=== PATIENT | male | born 1960 | race Caucasian/White ===

== ENCOUNTER 2019-02-12 21:35 | Inpatient (IN) | payer BC, MEDICAID ==
[~2019-02-12] VITALS: Ht 182.9 cm; Wt 80.0 kg
[~2019-02-12 21:35] MED LIST: FLO0.4C PO; IBUP-1984 PO
[2019-02-12 22:15] LABS: BASOPHILS # (AUTO) 0.1 X10'3 (0-0.2); BASOPHILS % (AUTO) 0.5 % (0-1); EOSINOPHILS % (AUTO) 0 % (0-6); HEMATOCRIT 46.3 % (42.0-52.0); LYMPHOCYTES # (AUTO) 0.7 X10'3 (1.1-4.8); LYMPHOCYTES % (AUTO) 4.3 % (21-51); MEAN CORPUSCULAR HEMOGLOBIN 31.5 PG (27.0-31.0); MEAN CORPUSCULAR HGB CONC 34.7 g/dL (33.0-36.5); MEAN CORPUSCULAR VOLUME 90.9 FL (78-98); MEAN PLATELET VOLUME 9.6 FL (7.4-10.4); MONOCYTES # (AUTO) 0.7 X10'3 (0-0.9); MONOCYTES % (AUTO) 4.4 % (2-12); NEUTROPHILS # (AUTO) 14.6 X10'3 (1.8-7.7); NEUTROPHILS % (AUTO) 90.8 % (42-75); PLATELET COUNT 210 X10'3 (140-440); RED BLOOD COUNT 5.09 X10'6 (4.70-6.10); RED CELL DISTRIBUTION WIDTH 13.3 % (11.5-14.5); WHITE BLOOD COUNT 16.1 X10'3 (4.5-11.0)
[2019-02-12] MEDS ORDERED: morphine 4 MG/ML inj SYRINge IV ONE (22:15)
[2019-02-12] MEDS ORDERED: ondansetron/PF 4mg/2ml inj IV ONE (22:15)
[2019-02-12 22:26] LABS: CLARITY,URINE CLEAR (Clear); COLOR,URINE YELLOW (Yellow); GLUCOSE, URINE NEGATIVE (Neg); KETONES,URINE 15 mg/dl (Neg); LEUKOCYTE ESTERASE ,URINE NEGATIVE (Neg); NITRITES, URINE NEGATIVE (Neg); OCCULT BLOOD,URINE NEGATIVE (Neg); PH,URINE 8.5 (4.8-8.0); PROTEIN,URINE NEGATIVE (Neg); UROBILINOGEN,URINE 0.2 E.U/dL (0.2-1.0)
[2019-02-12 22:31] LABS: ALANINE AMINOTRANSFERASE 28 U/L (12-78); ALBUMIN 4.2 G/DL (3.4-5.0); ALBUMIN/GLOBULIN RATIO 1.3 (1.1-1.5); ALKALINE PHOSPHATASE 31 IU/L (46-116); ANION GAP 13 (8-16); ASPARTATE AMINO TRANSFERASE 10 U/L (10-37); BLOOD UREA NITROGEN 13 MG/DL (7-18); BUN/CREATININE RATIO 11.2 (5.4-32.0); CALCIUM 9.4 MG/DL (8.5-10.1); CHLORIDE 103 MMOL/L (99-107); CREATININE 1.16 MG/DL (0.60-1.10); GLUCOSE 107 MG/DL (70-104); LIPASE 72 U/L (73-393); POTASSIUM 3.5 MMOL/L (3.5-5.1); SODIUM 139 MMOL/L (135-145); TOTAL CARBON DIOXIDE 23.1 MMOL/L (24-32); TOTAL PROTEIN 7.5 G/DL (6.4-8.2); eGFR 64 ML/MIN
[2019-02-12 22:32] LABS: UA COLLECTION TYPE CLN CATCH MIDSTREAM
--- NOTE | 2019-02-12 22:44 | NUR ---
[facility] [phone]
[2019-02-12] MEDS: diatr meglu/diatrizoate 30ml oral sol.-(3 dose) bottle PO SCH (23:40)
[2019-02-13] VITALS (25 sets, daily range): BP systolic 109–170; BP diastolic 66–92
[2019-02-13] MEDS: diatr meglu/diatrizoate 30ml oral sol.-(3 dose) bottle PO SCH ×2 (00:28→01:54)
[2019-02-13] MEDS ORDERED: iohexol 300mg/ml 100ml inj. ONE (01:07)
[2019-02-13] MEDS ORDERED: ceFOXitin 1 GM/D5W 50mL IVPB 50 ML IV ONE (03:30)
[2019-02-13] MEDS ORDERED: morphine 4 MG/ML inj SYRINge IV ONE (03:50)
[2019-02-13] MEDS ORDERED: ondansetron/PF 4mg/2ml inj IV ONE (04:10)
--- NOTE | 2019-02-13 04:56 | NUR ---
MD VERDUGO CONSULTED WITH HEATHER WHO WANTS PATIENT ADMITED TO INPATIENT AND WILL FOLLOW-UP FOR SURGICAL CONSULT THIS AM.
[2019-02-13] MEDS ORDERED: normal saline 1000ML IV soln IVB ONE (05:05)
[2019-02-13] MEDS ORDERED: magnesium 4gm in 100ml NS 100 ML IV PRN (05:10)
[2019-02-13] MEDS ORDERED: magnesium 2GM in 50ml NS 50 ML IV PRN (05:10)
[2019-02-13] MEDS ORDERED: potassium Cl 20 mEq SR tablet PO PRN ×2 (05:10)
[2019-02-13] MEDS ORDERED: magnesium Cl slow-release 64mg tablet PO PRN (05:10)
[2019-02-13] MEDS ORDERED: morphine 2 MG/ML inj. syringe IV PRN (05:10)
[2019-02-13] MEDS ORDERED: ondansetron/PF 4mg/2ml inj IV PRN ×3 (05:10→14:45)
[2019-02-13] MEDS ORDERED: potassium CL 10mEq/100ml bag 100 ML IV PRN ×2 (05:10)
[2019-02-13] MEDS: normal saline 1000ml 1,000 ML IV SCH ×2 (06:31→17:03)
[2019-02-13] MEDS ORDERED: levoFLOXACIN-Levaquin 500mg/D5 100 ML IV SCH (08:00)
[2019-02-13] MEDS: K and/or MAG REPLACEMENT MC SCH (08:00)
[2019-02-13] MEDS: famotidine/PF 10 mg/ml inj IV SCH (08:07)
[2019-02-13] MEDS ORDERED: morphine 2 MG/ML inj. syringe IV ONE (09:35)
[2019-02-13] MEDS ORDERED: FINA5TAB11 PO (12:38)
[2019-02-13] MEDS ORDERED: BUPIVAcaine/PF 2.5 mg/ml (0.25%) 30ml vial ONE (13:15)
[2019-02-13] MEDS ORDERED: ringers solution, lacted 1,000 ML IV SCH (13:22)
[2019-02-13] MEDS ORDERED: sevoflurane 250ml liquid IH ONE (13:23)
[2019-02-13] MEDS ORDERED: morphine 4 MG/ML inj SYRINge IV PRN (13:25)
[2019-02-13] MEDS ORDERED: labetalol 20mg/4ml (5mg/ml) syringe IV PRN (13:25)
[2019-02-13] MEDS ORDERED: fentaNYL/PF 50MCG/1 ML 2ML syringe IV PRN ×2 (13:25)
[2019-02-13] MEDS ORDERED: hydrALAZINE 20mg/ml inj. IV PRN (13:25)
[2019-02-13] MEDS ORDERED: fentaNYL/PF 50MCG/1 ML 2ML syringe ONE (13:28)
[2019-02-13] MEDS ORDERED: midazolam 2 mg/2 ml injection ONE (13:28)
[2019-02-13] MEDS ORDERED: neostigmine methylsulfate 1 MG/ML 10ml vial ONE (13:30)
[2019-02-13] MEDS ORDERED: rocuronium 10mg/ml inj IV ONE (13:30)
[2019-02-13] MEDS ORDERED: LIDOcaine 2% (20mg/ml) 5ml vial ONE (13:30)
[2019-02-13] MEDS ORDERED: dexamethasone sod phosphate 4mg/ml inj. ONE (13:30)
[2019-02-13] MEDS ORDERED: ondansetron/PF 4mg/2ml inj ONE (13:30)
[2019-02-13] MEDS ORDERED: glycopyrrolate 0.2mg/ml inj ONE (13:30)
[2019-02-13] MEDS ORDERED: propofol inj 20 ML IV ONE (13:30)
[2019-02-13] MEDS ORDERED: meperidine/PF 50mg/ml syringe ONE (13:43)
[2019-02-13] MEDS ORDERED: hydrALAZINE 20mg/ml inj. IV ONE (14:06)
[2019-02-13] MEDS ORDERED: HYDROmorphone 1 mg/ml syringe IV PRN (14:50)
--- NOTE | 2019-02-13 14:50 | NUR ---
Received from OR via BED, accompanied by Anesthesiologist DR BATISTA and report given by Anesthesiologist. PT DROWSY, DENEIS PAIN, ABDOMEN W/LAP SITES W/BANDAID AND MEDIPORE TAPE COVERING INCISION CDI, CLARK TO BULB SUCTION W/S/S DRAINAGE. Addendum: 02/13/19 at 1522 by Nan Cruz RN Amended: Links added.
[2019-02-13] MEDS: morphine 4 MG/ML inj SYRINge IV PRN ×3 (15:37→16:30)
--- NOTE | 2019-02-13 16:12 | NUR ---
Received report from milly. patient still to arrive on surgical floor.
--- NOTE | 2019-02-13 16:50 | NUR ---
CALL INTO DR LOERA EARLIER AND UPDATED CLARK S/S OUTPUT AND SATURATED DRSG, ORDERS TO REINFORCE DRSG, DONE W/4X4'S AND SILK TAPE, DRAINAGE SLOWING, CHANGED SHEETS AND PTS GOWN, PT TOLERATED WELL. Report called to receiving nurse. Transferred via BED IN STABLE CONDITION W/PAIN IMPROVED, NO Belongings, RECEIVING JACQUELINE MCCRARY AT BEDSIDE TO RECEIVE PT, CALL LIGHT GIVEN, SIDE RAILS UP X2, BLL. Special Issues communicated to receiving nurse. Addendum: 02/13/19 at 1700 by Nan Cruz RN Amended: Links added.
[2019-02-13] MEDS: metroNIDAZOLE-Flagyl 500mg/NS 100 ML IV SCH (16:58)
--- NOTE | 2019-02-13 18:10 | NUR ---
Patient in room [facility]. I have received report from Lo PHILLIPS and had the opportunity to ask questions and assume patient care.
--- NOTE | 2019-02-13 18:23 | NUR ---
Patient in room [facility] 356. I have received report from Nan PHILLIPS at bedside. patient very sleepy. abdominal dressing CDI, CLARK draining sang drainage. . Patient appears stable. will continue to monitor and had the opportunity to ask questions and assume patient care.
--- NOTE | 2019-02-13 18:25 | NUR ---
Problems reprioritized. Patient report given, questions answered & plan of care reviewed with Dorothy PHILLIPS.
[2019-02-13] MEDS: lactobacillus rhamnosus 10,000 MMU CELLS/CAPSULE PO SCH (20:40)
[2019-02-13] MEDS: morphine 2 MG/ML inj. syringe IV PRN (20:42)
[2019-02-14] VITALS: BP 117/76
[2019-02-14] MEDS: metroNIDAZOLE-Flagyl 500mg/NS 100 ML IV SCH ×3 (00:11→15:59)
[2019-02-14] MEDS: normal saline 1000ml 1,000 ML IV SCH ×3 (01:09→17:07)
[2019-02-14 04:00] VITALS: BP 123/82
--- NOTE | 2019-02-14 04:40 | NUR ---
patient had only managed to void twice since beginning of shift for a total of 175cc. Bladder scanned which revealed 475cc. Called MD who said, "if patient wants to be straight cathed, go ahead, otherwise leave it longer." Asked patient if he would like to be straight cathed and he refused saying "no, I want to Keep trying". Patient had managed to void 90cc before change of shift. Day RN aware.
[2019-02-14] MEDS: morphine 2 MG/ML inj. syringe IV PRN ×2 (04:49→08:46)
[2019-02-14 05:17] LABS: BASOPHILS % (AUTO) 0.1 % (0-1); EOSINOPHILS % (AUTO) 0 % (0-6); HEMATOCRIT 39.7 % (42.0-52.0); HEMOGLOBIN 13.7 g/dl (14.0-17.9); LYMPHOCYTES # (AUTO) 1.1 X10'3 (1.1-4.8); LYMPHOCYTES % (AUTO) 4.7 % (21-51); MEAN CORPUSCULAR HEMOGLOBIN 31.7 PG (27.0-31.0); MEAN CORPUSCULAR HGB CONC 34.6 g/dL (33.0-36.5); MEAN CORPUSCULAR VOLUME 91.5 FL (78-98); MEAN PLATELET VOLUME 9.8 FL (7.4-10.4); MONOCYTES # (AUTO) 1.8 X10'3 (0-0.9); MONOCYTES % (AUTO) 7.5 % (2-12); NEUTROPHILS # (AUTO) 20.6 X10'3 (1.8-7.7); NEUTROPHILS % (AUTO) 87.7 % (42-75); PLATELET COUNT 248 X10'3 (140-440); RED BLOOD COUNT 4.34 X10'6 (4.70-6.10); RED CELL DISTRIBUTION WIDTH 13.1 % (11.5-14.5); WHITE BLOOD COUNT 23.5 X10'3 (4.5-11.0)
[2019-02-14 05:30] LABS: ALBUMIN 3.2 G/DL (3.4-5.0); ANION GAP 11 (8-16); BLOOD UREA NITROGEN 13 MG/DL (7-18); BUN/CREATININE RATIO 9.4 (5.4-32.0); CALCIUM 8.6 MG/DL (8.5-10.1); CHLORIDE 102 MMOL/L (99-107); CREATININE 1.39 MG/DL (0.60-1.10); GLUCOSE 142 MG/DL (70-104); MAGNESIUM 1.5 MG/DL (1.5-2.4); POTASSIUM 4.1 MMOL/L (3.5-5.1); SODIUM 137 MMOL/L (135-145); TOTAL CARBON DIOXIDE 24.1 MMOL/L (24-32); eGFR 52 ML/MIN
--- NOTE | 2019-02-14 06:00 | NUR ---
Patient in room [facility] 356. I have received report from JACQUELINE De La Cruz and had the opportunity to ask questions and assume patient care.
[2019-02-14] MEDS: famotidine/PF 10 mg/ml inj IV SCH (07:25)
[2019-02-14] MEDS: lactobacillus rhamnosus 10,000 MMU CELLS/CAPSULE PO SCH ×2 (07:25→20:00)
[2019-02-14] MEDS: levoFLOXACIN-Levaquin 500mg/D5 100 ML IV SCH (07:26)
[2019-02-14] MEDS: K and/or MAG REPLACEMENT MC SCH (07:27)
[2019-02-14 08:00] VITALS: BP 123/80
--- NOTE | 2019-02-14 09:30 | NUR ---
Patient states pain is not resolved - offered [place] per MD, patient refused [place]. States he doesn't like to take it.
--- NOTE | 2019-02-14 09:51 | NUR ---
in to see patient. Patient states pain is somewhat improved, but is requesting [place] as it is still there and causing him discomfort.
[2019-02-14] MEDS: HYDROcodone/acetaminophen 10/325mg tab PO PRN ×2 (09:56→13:49)
[2019-02-14 11:00] VITALS: BP 122/77
--- NOTE | 2019-02-14 14:02 | NUR ---
Care plan initiated and priorities reviewed. Outcomes reviewed and updated.
--- NOTE | 2019-02-14 14:53 | NUR ---
Patient voiding small amounts,no more than 50-75 cc at a time. Bladder scan done with 550 cc noted. Patient refuses to have a straight cath even though he feels like he is not draining his bladder.
--- NOTE | 2019-02-14 16:17 | NUR ---
Patient continuing to void small amounts. Is feeling uncomfortable. Message to Dr. HIRA Manzo [id number]. Urinary retention. Voiding small amts, not emptying bladder. Order for straight cath? Patient refusing up until now. Total out 500, bladder scan shows 550 in bladder. Ros[facility] - Surgical EXT [id number]
[2019-02-14] MEDS: finasteride 5mg tablet PO SCH (16:33)
--- NOTE | 2019-02-14 17:21 | NUR ---
Straight cath done by JACQUELINE Manuel. #16 vincentian drained 700 ml of urine. Patient feeling nauseated, threw up a small amount. Given Zofran.
--- NOTE | 2019-02-14 18:18 | NUR ---
Problems reprioritized. Patient report given, questions answered & plan of care reviewed with JACQUELINE Ty.
[2019-02-14] MEDS ORDERED: metoclopramide 5 mg/ml inj IV PRN (18:20)
[2019-02-14 20:00] VITALS: BP 130/70
[2019-02-15] VITALS: BP 137/81
[2019-02-15] MEDS: metroNIDAZOLE-Flagyl 500mg/NS 100 ML IV SCH ×3 (00:21→15:15)
[2019-02-15] MEDS: normal saline 1000ml 1,000 ML IV SCH (04:35)
[2019-02-15 04:57] LABS: BASOPHILS % (AUTO) 0.2 % (0-1); EOSINOPHILS % (AUTO) 0.1 % (0-6); HEMATOCRIT 31.2 % (42.0-52.0); HEMOGLOBIN 10.7 g/dl (14.0-17.9); LYMPHOCYTES # (AUTO) 0.7 X10'3 (1.1-4.8); LYMPHOCYTES % (AUTO) 7.3 % (21-51); MEAN CORPUSCULAR HEMOGLOBIN 31.7 PG (27.0-31.0); MEAN CORPUSCULAR HGB CONC 34.2 g/dL (33.0-36.5); MEAN CORPUSCULAR VOLUME 92.8 FL (78-98); MEAN PLATELET VOLUME 9.4 FL (7.4-10.4); MONOCYTES # (AUTO) 0.7 X10'3 (0-0.9); NEUTROPHILS # (AUTO) 8.5 X10'3 (1.8-7.7); NEUTROPHILS % (AUTO) 85.4 % (42-75); PLATELET COUNT 143 X10'3 (140-440); RED BLOOD COUNT 3.36 X10'6 (4.70-6.10); RED CELL DISTRIBUTION WIDTH 13.4 % (11.5-14.5)
[2019-02-15 05:12] LABS: ALBUMIN 2.6 G/DL (3.4-5.0); ANION GAP 9 (8-16); BLOOD UREA NITROGEN 13 MG/DL (7-18); BUN/CREATININE RATIO 11.7 (5.4-32.0); CALCIUM 8.3 MG/DL (8.5-10.1); CHLORIDE 105 MMOL/L (99-107); CREATININE 1.11 MG/DL (0.60-1.10); GLUCOSE 96 MG/DL (70-104); MAGNESIUM 1.8 MG/DL (1.5-2.4); POTASSIUM 3.7 MMOL/L (3.5-5.1); SODIUM 139 MMOL/L (135-145); TOTAL CARBON DIOXIDE 24.8 MMOL/L (24-32); eGFR 68 ML/MIN
--- NOTE | 2019-02-15 06:10 | NUR ---
Patient in room [facility] 356. I have received report from Melony PHILLIPS and had the opportunity to ask questions and assume patient care.
--- NOTE | 2019-02-15 06:40 | NUR ---
Problems reprioritized. Patient report given, questions answered & plan of care reviewed with JACQUELINE Mendez.
[2019-02-15] MEDS: lactobacillus rhamnosus 10,000 MMU CELLS/CAPSULE PO SCH ×2 (07:48→19:54)
[2019-02-15] MEDS: finasteride 5mg tablet PO SCH (07:48)
[2019-02-15] MEDS: famotidine/PF 10 mg/ml inj IV SCH (07:48)
[2019-02-15] MEDS: K and/or MAG REPLACEMENT MC SCH (07:48)
[2019-02-15 08:00] VITALS: BP 129/78
[2019-02-15] MEDS: levoFLOXACIN-Levaquin 500mg/D5 100 ML IV SCH (09:02)
[2019-02-15 12:05] VITALS: BP 132/82
--- NOTE | 2019-02-15 13:09 | NUR ---
Pt complaining of urinary retention. Voided 50ml and 324ml on bladder scan. Dr. Riojas paged. Awaiting call back.
--- NOTE | 2019-02-15 18:39 | NUR ---
Problems reprioritized. Patient report given, questions answered & plan of care reviewed with Melony PHILLIPS.
[2019-02-15] MEDS: HYDROcodone/acetaminophen 10/325mg tab PO PRN (19:54)
[2019-02-15 20:05] VITALS: BP 131/83
[2019-02-16] VITALS: BP 116/74
[2019-02-16] MEDS: metroNIDAZOLE-Flagyl 500mg/NS 100 ML IV SCH ×3 (00:07→16:33)
[2019-02-16] MEDS: famotidine/PF 10 mg/ml inj IV SCH (04:54)
[2019-02-16] MEDS: HYDROcodone/acetaminophen 10/325mg tab PO PRN ×2 (04:54→14:18)
[2019-02-16 05:01] LABS: BASOPHILS % (AUTO) 0.2 % (0-1); EOSINOPHILS # (AUTO) 0.1 X10'3 (0-0.9); EOSINOPHILS % (AUTO) 0.7 % (0-6); HEMATOCRIT 29.2 % (42.0-52.0); HEMOGLOBIN 10.2 g/dl (14.0-17.9); LYMPHOCYTES # (AUTO) 0.6 X10'3 (1.1-4.8); LYMPHOCYTES % (AUTO) 8.1 % (21-51); MEAN CORPUSCULAR HEMOGLOBIN 32.2 PG (27.0-31.0); MEAN CORPUSCULAR HGB CONC 34.9 g/dL (33.0-36.5); MEAN CORPUSCULAR VOLUME 92.2 FL (78-98); MEAN PLATELET VOLUME 8.9 FL (7.4-10.4); MONOCYTES # (AUTO) 0.5 X10'3 (0-0.9); MONOCYTES % (AUTO) 6.5 % (2-12); NEUTROPHILS # (AUTO) 6.7 X10'3 (1.8-7.7); NEUTROPHILS % (AUTO) 84.5 % (42-75); PLATELET COUNT 163 X10'3 (140-440); RED BLOOD COUNT 3.17 X10'6 (4.70-6.10); RED CELL DISTRIBUTION WIDTH 13.2 % (11.5-14.5); WHITE BLOOD COUNT 7.9 X10'3 (4.5-11.0)
[2019-02-16 05:02] LABS: ALBUMIN 2.6 G/DL (3.4-5.0); ANION GAP 9 (8-16); BLOOD UREA NITROGEN 10 MG/DL (7-18); BUN/CREATININE RATIO 9.4 (5.4-32.0); CALCIUM 8.3 MG/DL (8.5-10.1); CHLORIDE 106 MMOL/L (99-107); CREATININE 1.06 MG/DL (0.60-1.10); GLUCOSE 102 MG/DL (70-104); SODIUM 140 MMOL/L (135-145); TOTAL CARBON DIOXIDE 24.7 MMOL/L (24-32); eGFR 72 ML/MIN
--- NOTE | 2019-02-16 05:04 | NUR ---
Pt having indigestion, gave pepcid early.
--- NOTE | 2019-02-16 06:38 | NUR ---
Problems reprioritized. Patient report given, questions answered & plan of care reviewed with JACQUELINE East.
--- NOTE | 2019-02-16 06:40 | NUR ---
Patient in room [facility] 356. I have received report from Melony Hoffmann RN and had the opportunity to ask questions and assume patient care.
[2019-02-16] MEDS: levoFLOXACIN-Levaquin 500mg/D5 100 ML IV SCH (07:18)
[2019-02-16] MEDS: lactobacillus rhamnosus 10,000 MMU CELLS/CAPSULE PO SCH ×2 (07:19→19:46)
[2019-02-16] MEDS: finasteride 5mg tablet PO SCH (07:19)
[2019-02-16 08:00] VITALS: BP 124/76
[2019-02-16] MEDS: K and/or MAG REPLACEMENT MC SCH (08:00)
[2019-02-16 12:00] VITALS: BP 122/77
[2019-02-16] MEDS ORDERED: mag hydrox/Alum hydrox/simeth 30ml oral suspension PO PRN (17:45)
--- NOTE | 2019-02-16 18:45 | NUR ---
Problems reprioritized. Patient report given, questions answered & plan of care reviewed with JACQUELINE Shipley.
[2019-02-16 19:00] VITALS: BP 135/87
[2019-02-16] MEDS: morphine 2 MG/ML inj. syringe IV PRN (20:52)
--- NOTE | 2019-02-16 21:00 | NUR ---
Patient in room [facility] 356. I have received report from Kita PHILLIPS and had the opportunity to ask questions and assume patient care.
[2019-02-17] VITALS: BP 136/82
[2019-02-17] MEDS: metroNIDAZOLE-Flagyl 500mg/NS 100 ML IV SCH (00:07)
--- NOTE | 2019-02-17 00:15 | NUR ---
Patient's IV infiltrated and patient declined to have a new IV and requested instead PO medications. MD notified and he ordered a one time dose of 500m Flagyl. Patient was educated and given the lab results specifically WBC (7.9). patient's IV antibiotics to be changed to PO per doctor 's note. Addendum: 02/17/19 at 0455 by Violetta Looney RN Amended: Links added.
[2019-02-17] MEDS ORDERED: metroNIDAZOLE 500mg tablet PO ONE (01:20)
[2019-02-17] MEDS ORDERED: ondansetron 4mg rapidly disintigrating tab PO PRN (05:45)
--- NOTE | 2019-02-17 06:20 | NUR ---
Patient in room [facility] 356. I have received report from JACQUELINE Shipley and had the opportunity to ask questions and assume patient care.
[2019-02-17 07:19] LABS: BASOPHILS % (AUTO) 0.5 % (0-1); EOSINOPHILS % (AUTO) 0.6 % (0-6); HEMATOCRIT 33.9 % (42.0-52.0); HEMOGLOBIN 11.6 g/dl (14.0-17.9); LYMPHOCYTES # (AUTO) 0.5 X10'3 (1.1-4.8); LYMPHOCYTES % (AUTO) 7.1 % (21-51); MEAN CORPUSCULAR HEMOGLOBIN 31.3 PG (27.0-31.0); MEAN CORPUSCULAR HGB CONC 34.1 g/dL (33.0-36.5); MEAN CORPUSCULAR VOLUME 91.7 FL (78-98); MEAN PLATELET VOLUME 7.9 FL (7.4-10.4); MONOCYTES # (AUTO) 0.7 X10'3 (0-0.9); NEUTROPHILS # (AUTO) 6.3 X10'3 (1.8-7.7); NEUTROPHILS % (AUTO) 82.8 % (42-75); PLATELET COUNT 231 X10'3 (140-440); RED BLOOD COUNT 3.69 X10'6 (4.70-6.10); RED CELL DISTRIBUTION WIDTH 13.2 % (11.5-14.5); WHITE BLOOD COUNT 7.6 X10'3 (4.5-11.0)
[2019-02-17 07:26] LABS: ANION GAP 7 (8-16); BLOOD UREA NITROGEN 10 MG/DL (7-18); BUN/CREATININE RATIO 9.5 (5.4-32.0); CALCIUM 8.8 MG/DL (8.5-10.1); CHLORIDE 104 MMOL/L (99-107); CREATININE 1.05 MG/DL (0.60-1.10); GLUCOSE 114 MG/DL (70-104); MAGNESIUM 2.1 MG/DL (1.5-2.4); POTASSIUM 3.6 MMOL/L (3.5-5.1); SODIUM 138 MMOL/L (135-145); TOTAL CARBON DIOXIDE 26.8 MMOL/L (24-32); eGFR 72 ML/MIN
[2019-02-17 07:30] VITALS: BP 150/93
[2019-02-17] MEDS ORDERED: famotidine 20mg tablet PO SCH (08:00)
[2019-02-17] MEDS: K and/or MAG REPLACEMENT MC SCH (08:00)
[2019-02-17] MEDS: lactobacillus rhamnosus 10,000 MMU CELLS/CAPSULE PO SCH (08:02)
[2019-02-17] MEDS: finasteride 5mg tablet PO SCH (08:02)
[2019-02-17] MEDS: metroNIDAZOLE 500mg tablet PO SCH ×2 (08:02→16:50)
[2019-02-17] MEDS ORDERED: acetaminophen 325mg tablet PO PRN (08:50)
[2019-02-17] MEDS ORDERED: levoFLOXACIN 500mg tablet PO SCH (11:00)
[2019-02-17 12:00] VITALS: BP 116/87
--- NOTE | 2019-02-17 12:30 | NUR ---
CLARK drain DC'd, site clean, gauze and foam tape applied. Patient tolerated well.
[2019-02-17] MEDS ORDERED: METR500T PO (15:53)
[2019-02-17] MEDS ORDERED: LEVO500T89 PO (15:53)
[2019-02-17] MEDS ORDERED: LACT1CAP26 PO (15:53)
== END 2019-02-17 18:03 | disposition home or self-care (01) | DRG 339 ==
LOC: ER 21:35 → SUR 3N 02-13 08:34 → CMPBEDREQ 02-13 20:26
PROVIDERS: ADMIT Internal Medicine; ATTEND Internal Medicine
PROC: BW211ZZ Computerized Tomography (CT Scan) of Abdomen and Pelvis using Low Osmolar Contrast (ICD-10-PCS; 2019-02-13)
PROC: 0DTJ4ZZ Resection of Appendix, Percutaneous Endoscopic Approach (ICD-10-PCS; principal; 2019-02-13 13:23)
DX: K35.32 Acute appendicitis with perforation, localized peritonitis, and gangrene, without abscess (principal); N17.9 Acute kidney failure, unspecified; K56.7 Ileus, unspecified; N40.0 Benign prostatic hyperplasia without lower urinary tract symptoms; Z79.899 Other long term (current) drug therapy; D64.9 Anemia, unspecified
CPT/HCPCS: 96365; 96375; 96376; 99285; Z7506; Z7508; 36415; 74177; 80048; 80053; 81003; 82948; 83605; 83690; 83735; 85025; 85610; 86885; 86900; 86901; 87040; 87081; 93005; A4215; A4314; A4618; A6402; A7000; G0378; J0360; J0694; J1100; J1956; J2001; J2175; J2250; J2270; J2405; J2704; J2710; J2765; J3010; J3490; J7030; J7120; Q9963; Q9967

== ENCOUNTER 2019-03-10 16:59 | Emergency (ER) | payer BC ==
[~2019-03-10 16:59] MED LIST changes: +FINA5TAB11 PO; -FLO0.4C PO; -IBUP-1984 PO; +LACT1CAP26 PO; +LEVO500T89 PO; +METR500T PO
--- NOTE | 2019-03-10 17:04 | NUR ---
REGISTRATION STATED PT DID NOT WANT TO STAY AFTER SIGNING IN AND LEFT THE ED LOBBY IMMEDIATELY.
== END 2019-03-10 17:08 | disposition left against medical advice (07) ==
LOC: ER 17:00
DX: L02.91 Cutaneous abscess, unspecified (principal); Z53.21 Procedure and treatment not carried out due to patient leaving prior to being seen by health care provider

== ENCOUNTER 2020-07-07 19:12 | Emergency (ER) | payer BC ==
[~2020-07-07] VITALS: Ht 185.4 cm; Wt 76.8 kg
[2020-07-07 19:50] LABS: BASOPHILS % (AUTO) 0.4 % (0-1); EOSINOPHILS # (AUTO) 0.1 X10'3 (0-0.9); EOSINOPHILS % (AUTO) 1.1 % (0-6); HEMATOCRIT 43.2 % (42.0-52.0); LYMPHOCYTES # (AUTO) 1.3 X10'3 (1.1-4.8); LYMPHOCYTES % (AUTO) 20.4 % (21-51); MEAN CORPUSCULAR HEMOGLOBIN 31.7 PG (27.0-31.0); MEAN CORPUSCULAR HGB CONC 34.6 g/dL (33.0-36.5); MEAN CORPUSCULAR VOLUME 91.7 FL (78-98); MEAN PLATELET VOLUME 8.8 FL (7.4-10.4); MONOCYTES # (AUTO) 0.4 X10'3 (0-0.9); NEUTROPHILS # (AUTO) 4.5 X10'3 (1.8-7.7); NEUTROPHILS % (AUTO) 71.1 % (42-75); PLATELET COUNT 207 X10'3 (140-440); RED BLOOD COUNT 4.72 X10'6 (4.70-6.10); RED CELL DISTRIBUTION WIDTH 12.8 % (11.5-14.5); WHITE BLOOD COUNT 6.3 X10'3 (4.5-11.0)
[2020-07-07 20:01] LABS: ALANINE AMINOTRANSFERASE 35 U/L (12-78); ALBUMIN 4.1 G/DL (3.4-5.0); ALBUMIN/GLOBULIN RATIO 1.4 (1.1-1.5); ALKALINE PHOSPHATASE 47 IU/L (46-116); ANION GAP 11 (8-16); ASPARTATE AMINO TRANSFERASE 14 U/L (10-37); BILIRUBIN,TOTAL 0.4 MG/DL (0.1-1.0); BLOOD UREA NITROGEN 20 MG/DL (7-18); BUN/CREATININE RATIO 16.7 (5.4-32.0); CALCIUM 9.3 MG/DL (8.5-10.1); CHLORIDE 103 MMOL/L (99-107); GLUCOSE 167 MG/DL (70-104); POTASSIUM 3.9 MMOL/L (3.5-5.1); SODIUM 137 MMOL/L (135-145); TOTAL CARBON DIOXIDE 22.7 MMOL/L (24-32); TOTAL PROTEIN 7.1 G/DL (6.4-8.2); eGFR 62 ML/MIN
[2020-07-07 20:53] VITALS: BP 131/89
== END 2020-07-07 20:56 | disposition home or self-care (01) ==
LOC: ER 19:12
DX: R20.0 Anesthesia of skin (principal); T50.995A Adverse effect of other drugs, medicaments and biological substances, initial encounter; R07.9 Chest pain, unspecified; Z88.0 Allergy status to penicillin; Z79.899 Other long term (current) drug therapy; Y92.89 Other specified places as the place of occurrence of the external cause
CPT/HCPCS: 36415; 71045; 80053; 83880; 84484; 85025; 93005; 99285